=== PATIENT | female | born 1985 | race Caucasian/White ===

== ENCOUNTER 2017-04-30 16:48 | Observation (INO) | payer OTHER ==
[~2017-04-30] VITALS: Ht 152.4 cm; Wt 66.7 kg
[2017-05-05] MEDS ORDERED: PREN1TAB80 PO (21:48)
[2017-05-05 21:49] VITALS: BP 102/63
== END 2017-05-06 00:02 | disposition home or self-care (01) ==
LOC: 4S 05-05 21:11
PROVIDERS: ADMIT Obstetrics & Gynecology; ATTEND Obstetrics & Gynecology
DX: O62.9 Abnormality of forces of labor, unspecified (principal); O42.92 Full-term premature rupture of membranes, unspecified as to length of time between rupture and onset of labor; Z3A.40 40 weeks gestation of pregnancy
CPT/HCPCS: 36415; 59025; 89060; G0378

== ENCOUNTER 2017-05-09 11:22 | Observation (INO) | payer OTHER ==
[~2017-05-09 11:22] MED LIST: PREN1TAB80 PO
[2017-05-09 14:29] VITALS: BP 105/56
== END 2017-05-09 14:25 | disposition home or self-care (01) ==
LOC: 4S 11:22
PROVIDERS: ADMIT Obstetrics & Gynecology; ATTEND Obstetrics & Gynecology
DX: O48.0 Post-term pregnancy (principal); O26.893 Other specified pregnancy related conditions, third trimester; R10.30 Lower abdominal pain, unspecified; Z3A.40 40 weeks gestation of pregnancy
CPT/HCPCS: 59025; G0378

== ENCOUNTER 2017-05-09 18:13 | Inpatient (IN) | payer OTHER ==
[~2017-05-09] VITALS: Ht 152.4 cm; Wt 67.1 kg
[2017-05-09] MEDS ORDERED: RINGERS SOLUTION,LACTATED 1,000 ML IV PRN (18:50)
[2017-05-09] MEDS ORDERED: CITRIC ACID/SODIUM CITRATE 30 ML SOLUTION UDCUP PO PRN (19:00)
[2017-05-09] MEDS ORDERED: MISOPROSTOL 25 MCG TABLET PR ONE (19:00)
[2017-05-09] MEDS ORDERED: METOCLOPRAMIDE HCL 5 MG/ML 2 ML VIAL IVP PRN (19:00)
[2017-05-09] MEDS ORDERED: AMPICILLIN SODIUM 2 GM/NS 100 ML IV ONE (19:00)
[2017-05-09 19:27] LABS: BASOPHILS % (AUTO) 0.3 % (0.0-2.0); EOSINOPHILS % (AUTO) 0.9 % (1.0-6.0); HEMATOCRIT 34.1 % (36-46); HEMOGLOBIN 11.6 g/dL (12.0-16.0); LYMPHOCYTES # (AUTO) 1.7 K/uL (1.0-4.8); LYMPHOCYTES % (AUTO) 22.3 % (22.0-44.0); MEAN CORPUSCULAR HEMOGLOBIN 29.8 pg (26.0-34.0); MEAN CORPUSCULAR VOLUME 88 fL (80-100); MONOCYTES # (AUTO) 0.9 K/uL (0.1-1.0); MONOCYTES % (AUTO) 11.9 % (2.0-9.0); NEUTROPHILS # (AUTO) 5.1 K/uL (1.8-7.7); NEUTROPHILS % (AUTO) 64.6 % (40.0-70.0); RED BLOOD CELL COUNT(AUTO) 3.89 MIL/uL (4.00-5.20); RED CELL DISTRIBUTION WIDTH 14.6 % (11.5-14.5); WHITE BLOOD COUNT (AUTO) 7.8 K/uL (4.5-11.0)
[2017-05-09] MEDS ORDERED: OXYGEN THERAPY IH SCH (20:00)
[2017-05-10] MEDS: MISOPROSTOL 25 MCG TABLET VG SCH ×2 (00:58→06:20)
[2017-05-10] MEDS: RINGERS SOLUTION,LACTATED 1,000 ML IV SCH ×3 (04:32→18:38)
[2017-05-10] MEDS: FentaNYL CITRATE-PF 100 MCG/2 ML VIAL IVP PRN ×3 (05:42→08:04)
[2017-05-10] MEDS: AMPICILLIN SODIUM 1 GM/NS 50 ML IV SCH ×3 (08:34→20:11)
[2017-05-10] MEDS ORDERED: OXYTOCIN 30 UNITS/LACT RINGERS 500 ML IV PRN (09:26)
[2017-05-10] MEDS ORDERED: LIDOCAINE HCL/PF 2% 5 ML VIAL ONE ×3 (09:45→23:25)
[2017-05-10] MEDS ORDERED: FentaNYL/BUPIV 0.125%/NS/PF 200 ML ED ONE ×2 (09:45→23:25)
[2017-05-10] MEDS ORDERED: FentaNYL/BUPIV 0.125%/NS/PF 200 ML ED PRN (10:08)
[2017-05-10] MEDS ORDERED: ONDANSETRON HCL 4 MG/2 ML VIAL IVP PRN (10:15)
[2017-05-10] MEDS ORDERED: NALBUPHINE HCL 10 MG/ML VIAL IVP PRN (10:15)
[2017-05-10] MEDS ORDERED: PROMETHAZINE HCL 12.5 MG in SODIUM CHLORIDE 0.9% 50 ML IV PRN (10:15)
[2017-05-10] MEDS ORDERED: DiphenhydrAMINE HCL 50 MG/ML VIAL IVP PRN (10:15)
[2017-05-10] MEDS ORDERED: BUPIVACAINE HCL/PF 0.5% 10 ML VIAL ONE (19:57)
[2017-05-11] MEDS: AMPICILLIN SODIUM 1 GM/NS 50 ML IV SCH (00:31)
[2017-05-11] MEDS ORDERED: LIDOCAINE HCL/PF 2% 5 ML VIAL ONE (01:04)
[2017-05-11] MEDS ORDERED: FentaNYL CITRATE-PF 100 MCG/2 ML VIAL ONE ×2 (01:04→04:25)
[2017-05-11] MEDS: RINGERS SOLUTION,LACTATED 1,000 ML IV SCH (03:01)
[2017-05-11] MEDS ORDERED: MORPHINE SULFATE/PF 0.5 MG/ML 10 ML AMP ONE (04:25)
[2017-05-11] MEDS ORDERED: ACETAMINOPHEN 1000 MG/ISO-OSM 100 ML IV ONE (04:25)
[2017-05-11] MEDS ORDERED: GUM MASTIC/STORAX/MSAL/ALCOHOL LIQUID 0.67 ML VIAL TP ONE (05:28)
[2017-05-11] MEDS ORDERED: NALOXONE HCL 0.4 MG/ML VIAL IVP PRN (05:30)
[2017-05-11] MEDS ORDERED: FentaNYL CITRATE-PF 100 MCG/2 ML VIAL IVP PRN ×4 (05:30)
[2017-05-11] MEDS ORDERED: DiphenhydrAMINE HCL 50 MG/ML VIAL IM PRN (05:30)
[2017-05-11] MEDS ORDERED: MEPERIDINE-PF 25 MG/ML SYRINGE IVP PRN (05:30)
[2017-05-11] MEDS ORDERED: NALBUPHINE HCL 10 MG/ML VIAL IVP PRN ×3 (05:30)
[2017-05-11] MEDS ORDERED: MORPHINE SULFATE 2 MG/ML SYRINGE IVP PRN ×2 (05:30)
[2017-05-11] MEDS ORDERED: DiphenhydrAMINE HCL 50 MG/ML VIAL IVP PRN ×2 (05:30)
[2017-05-11] MEDS ORDERED: ONDANSETRON HCL 4 MG/2 ML VIAL IVP PRN ×2 (05:30)
[2017-05-11] MEDS ORDERED: PROMETHAZINE HCL 12.5 MG in SODIUM CHLORIDE 0.9% 50 ML IV PRN (05:30)
[2017-05-11] MEDS ORDERED: DEXAMETHASONE SOD PHOS 4 MG/ML VIAL IVP PRN (05:30)
[2017-05-11] MEDS ORDERED: MORPHINE SULFATE 10 MG/ML SYRINGE IVP PRN ×2 (05:30)
[2017-05-11 07:49] VITALS: BP 131/63
[2017-05-11] MEDS ORDERED: RINGERS SOLUTION,LACTATED 1,000 ML IV SCH (07:50)
[2017-05-11] MEDS ORDERED: LANOLIN 7 GM OINTMENT TP PRN (08:00)
[2017-05-11] MEDS ORDERED: OXYGEN THERAPY IH SCH ×4 (08:00)
[2017-05-11] MEDS ORDERED: OxyCODONE HCL/ACETAMINOPHEN 5-325 MG TABLET PO PRN (08:00)
[2017-05-11] MEDS ORDERED: EPHEDrine SULFATE 50 MG/ML VIAL ONE (12:15)
[2017-05-11] MEDS ORDERED: OXYTOCIN 10 UNITS/ML VIAL IM ONE (12:15)
[2017-05-11] MEDS ORDERED: 0.9% SODIUM CHLORIDE 10 ML VIAL ONE (12:15)
[2017-05-11] MEDS ORDERED: ACETAMINOPHEN 1000 MG/ISO-OSM 100 ML IV SCH (13:30)
[2017-05-11] MEDS: IBUPROFEN 800 MG TABLET PO PRN (16:31)
[2017-05-11] MEDS: OxyCODONE HCL/ACETAMINOPHEN 5-325 MG TABLET PO PRN (21:28)
[2017-05-12] MEDS: IBUPROFEN 800 MG TABLET PO PRN ×3 (06:07→22:01)
[2017-05-12 07:07] LABS: BASOPHILS # (AUTO) 0.02 K/uL (0.00-0.20); BASOPHILS % (AUTO) 0.2 % (0.0-2.0); EOSINOPHILS # (AUTO) 0.09 K/uL (0.00-0.70); HEMATOCRIT 28.4 % (36-46); HEMOGLOBIN 9.8 g/dL (12.0-16.0); LYMPHOCYTES # (AUTO) 1.6 K/uL (1.0-4.8); LYMPHOCYTES % (AUTO) 14.8 % (22.0-44.0); MEAN CORPUSCULAR HEMOGLOBIN 30.1 pg (26.0-34.0); MEAN CORPUSCULAR HGB CONC 34.4 G/dL (31.0-37.0); MEAN CORPUSCULAR VOLUME 88 fL (80-100); MONOCYTES # (AUTO) 0.9 K/uL (0.1-1.0); MONOCYTES % (AUTO) 8.4 % (2.0-9.0); NEUTROPHILS # (AUTO) 8.2 K/uL (1.8-7.7); NEUTROPHILS % (AUTO) 75.8 % (40.0-70.0); RED BLOOD CELL COUNT(AUTO) 3.24 MIL/uL (4.00-5.20); WHITE BLOOD COUNT (AUTO) 10.8 K/uL (4.5-11.0)
[2017-05-12] MEDS ORDERED: IBUPROFEN 800 MG TABLET PO PRN (08:00)
[2017-05-12] MEDS: MAGNESIUM HYDROXIDE SUSPENSION 30 ML UDCUP PO SCH ×2 (09:07→20:51)
[2017-05-13] MEDS: OxyCODONE HCL/ACETAMINOPHEN 5-325 MG TABLET PO PRN ×2 (00:14→09:00)
[2017-05-13] MEDS: IBUPROFEN 800 MG TABLET PO PRN (05:53)
[2017-05-13] MEDS: MAGNESIUM HYDROXIDE SUSPENSION 30 ML UDCUP PO SCH (08:54)
[2017-05-13] MEDS ORDERED: IBUP-2070 PO (12:28)
[2017-05-13] MEDS ORDERED: DSS100 PO (12:28)
[2017-05-13] MEDS ORDERED: PERCT10 PO (12:28)
[2017-05-13] MEDS ORDERED: FERR-89 PO (12:28)
== END 2017-05-13 15:15 | disposition home or self-care (01) | DRG 766 ==
LOC: 4S 18:13 → OBSVTOIN 18:45 → 4S 05-11 08:15
PROVIDERS: ADMIT Obstetrics & Gynecology; ATTEND Obstetrics & Gynecology
PROC: 10907ZC Drainage of Amniotic Fluid, Therapeutic from Products of Conception, Via Natural or Artificial Opening (ICD-10-PCS; 2017-05-10)
PROC: 10D00Z1 Extraction of Products of Conception, Low, Open Approach (ICD-10-PCS; principal; 2017-05-11)
DX: O99.824 Streptococcus B carrier state complicating childbirth (principal); O48.0 Post-term pregnancy; O77.0 Labor and delivery complicated by meconium in amniotic fluid; O62.0 Primary inadequate contractions; Z37.0 Single live birth; Z3A.41 41 weeks gestation of pregnancy
CPT/HCPCS: 86850; 86900; 86901; J0131; J0290; J0690; J2274; J2405; J2590; J2765; J3010; J3490; J7120